=== PATIENT | male | born 1985 | race Caucasian/White ===

== ENCOUNTER 2017-10-13 22:18 | Emergency (ER) | payer SELFPAY ==
[2017-10-13 22:21] VITALS: BP 115/55
--- NOTE | 2017-10-13 22:41 | EDPHY ---
H & P Stated Complaint: upper lip lac Time Seen by Provider: 10/13/17 22:23 HPI/ROS: Chief Complaint: Lip laceration HPI: 32-year-old male was playing hockey this evening when he took a puck to the face. He sustained a laceration on the edge of his upper lip. No loose teeth. No loss of consciousness. Last tetanus was in 2010. ROS: 10 point Review of Systems is negative except as noted in the HPI. PMH: Denies Social History: No smoking, occasional alcohol Family History: non-contributory Physical Exam: General: Awake, alert, no acute distress Head: Mouth: Patient has a 1 cm laceration his left upper lip which does not cross the vermilion border. He has normal dentition. No maxillary or mandibular tenderness or deformity. Laceration is not through and through. No facial tenderness or deformity. Neck: Nontender full range of motion of pain Skin: No rash - Personal History Current Tetanus/Diphtheria Vaccine: Unsure - Medical/Surgical History Hx Asthma: No Hx Chronic Respiratory Disease: No Hx Diabetes: No Hx Cardiac Disease: No Hx Renal Disease: No Hx Alcoholism: No Hx HIV/AIDS: No Hx Splenectomy or Spleen Trauma: No Other PMH: healthy - Social History Smoking Status: Never smoked Constitutional: Initial Vital Signs Temperature (C) 36.8 C 10/13/17 22:18 Heart Rate 69 10/13/17 22:18 Respiratory Rate 18 10/13/17 22:18 Blood Pressure 115/55 L 10/13/17 22:18 O2 Sat (%) 99 10/13/17 22:18 O2 Delivery Mode Room Air Allergies/Adverse Reactions: No Known Allergies Allergy (Verified 10/13/17 22:20) Home Medications: Medication Instructions Recorded NK [No Known Home Meds] 01/22/15 Departure - Departure Disposition: Home, Routine, Self-Care Clinical Impression: Lip laceration Condition: Good Instructions: Facial Laceration (ED), Care For Your Absorbable Stitches (ED) Additional Instructions: Sutures are absorbable and will not need to be removed. Return emergency depart for increasing redness, warmth, discharge from the wound , increasing pain, or any other concerns. Referrals: NONE *PRIMARY CARE P,. [Primary Care Provider] - As per Instructions
== END 2017-10-13 23:05 | disposition home or self-care (01) ==
DX: S01.511A Laceration without foreign body of lip, initial encounter (principal); W21.221A Struck by field hockey puck, initial encounter; Y99.8 Other external cause status; Y93.65 Activity, lacrosse and field hockey